=== PATIENT | male | born 1930 | race Caucasian/White ===

== ENCOUNTER 2017-01-01 13:15 | Emergency (ER) | payer MEDICARE, BC ==
--- NOTE | 2017-01-01 15:00 | ER Document Report ---
ED Medical Screen (RME) - General Chief Complaint: Fall Stated Complaint: FALL,HEAD LACERATION Notes: Patient tripped and fell this morning hitting his left forehead over the lateral aspect of the left eyebrow sustaining some small cuts there. His certain that he tripped and did not experience any syncope or loss of consciousness. He has pain in his right shoulder since the fall, but fell on his left side, not his right. Patient is scheduled for surgery to have the right shoulder replaced. Denies other injuries such as neck, lower extremities , etc. Says he did hit his left ribs but doesn't have pain there. TRAVEL OUTSIDE OF THE [place] IN LAST 30 DAYS: No - Related Data Allergies/Adverse Reactions: Penicillins Allergy (Verified 01/01/17 13:54) Past Medical History Renal/ Medical History: Denies: Hx Peritoneal Dialysis Physical Exam - Vital signs Vitals: Temp Pulse Resp BP Pulse Ox 98.3 F 51 L 20 165/65 H 99 01/01/17 13:54 01/01/17 13:54 01/01/17 13:54 01/01/17 13:54 01/01/17 13:54 Course - Vital Signs Vital signs: Temp Pulse Resp BP Pulse Ox 98.3 F 51 L 20 165/65 H 99 01/01/17 13:54 01/01/17 13:54 01/01/17 13:54 01/01/17 13:54 01/01/17 13:54
[2017-01-01] MEDS ORDERED: DIPH/PERTUSS(ACELL)/TETANUS VAC/PF 0.5 ML SYR (>=10YO) IM ONE (15:51)
[2017-01-01] MEDS ORDERED: LIDOCAINE 1%/EPINEPHRINE INJ 20 ML VIAL INJ ONE (15:51)
--- NOTE | 2017-01-01 15:51 | ER Document Report ---
ED Fall - General Chief Complaint: Fall Stated Complaint: FALL,HEAD LACERATION Time seen by provider: 15:51 Mode of Arrival: Ambulatory Information source: Patient TRAVEL OUTSIDE OF THE [place] IN LAST 30 DAYS: No - HPI Patient complains to provider of: trip and fall, head injury, right shoulder pain Occurred: Just prior to arrival Where: Home Context: Tripped Associated symptoms: None Location of injury/pain: Head, Shoulder Quality of pain: Achy Severity: Mild Pain Level: 2 Notes: Patient is an 86 rolled male who presents to the emergency room status post trip and fall at home resulting in an injury to his left forehead and right shoulder, he reports a history of right shoulder pain previously, which seems to be aggravated by his fall, patient denies having any loss of consciousness, states it did take him a few minutes to get up off the ground, denies nausea or vomiting, no vision changes, last tetanus shot is unknown - Related data Allergies/Adverse Reactions: Penicillins Allergy (Verified 01/01/17 13:54) Past Medical History - General Information source: Patient - Social History Smoking Status: Current Every Day Smoker Family History: Reviewed & Not Pertinent Patient has suicidal ideation: No Patient has homicidal ideation: No Renal/ Medical History: Denies: Hx Peritoneal Dialysis Review of Systems - Review of Systems Constitutional: No symptoms reported EENT: No symptoms reported Cardiovascular: No symptoms reported Respiratory: No symptoms reported Gastrointestinal: No symptoms reported Genitourinary: No symptoms reported Male Genitourinary: No symptoms reported Musculoskeletal: See HPI Skin: See HPI Hematologic/Lymphatic: No symptoms reported Neurological/Psychological: No symptoms reported -: Yes All other systems reviewed and negative Physical Exam - Vital signs Vitals: Temp Pulse Resp BP Pulse Ox 98.3 F 51 L 20 165/65 H 99 01/01/17 13:54 01/01/17 13:54 01/01/17 13:54 01/01/17 13:54 01/01/17 13:54 Interpretation: Hypertensive, Bradycardic - General General appearance: Appears well, Alert In distress: None - HEENT Head: Normocephalic, Other - 2.5 cm laceration in the left forehead just above the eyebrow Eyes: Normal Conjunctiva: Normal Extraocular movements intact: Yes Eyelashes: Normal Pupils: PERRL Pharynx: Normal Neck: Normal - Respiratory Respiratory status: No respiratory distress Chest status: Nontender Breath sounds: Normal Chest palpation: Normal - Cardiovascular Rhythm: Regular Heart sounds: Normal auscultation Murmur: No - Abdominal Inspection: Normal Distension: No distension Bowel sounds: Normal Tenderness: Nontender Organomegaly: No organomegaly - Back Back: Normal, Nontender - Extremities General upper extremity: Normal color, Normal ROM, Normal temperature General lower extremity: Normal inspection, Nontender, Normal color, Normal ROM , Normal temperature, Normal weight bearing. No: Edie's sign Shoulder: Tender - Tender to palpate in anterior shoulder region, pain with range of motion testing, distal sensation and motor intact with 2+ radial pulses - Neurological Neuro grossly intact: Yes Cognition: Normal Orientation: AAOx4 Melissa Coma Scale Eye Opening: Spontaneous Melissa Coma Scale Verbal: Oriented Melissa Coma Scale Motor: Obeys Commands [place] Coma Scale Total: 15 Speech: Normal Motor strength normal: LUE, RUE, LLE, RLE Sensory: Normal - Psychological Associated symptoms: Normal affect, Normal mood - Skin Skin Temperature: Warm Skin Moisture: Dry Skin Color: Normal Course - Re-evaluation Re-evalutation: 01/01/17 17:22 Imaging findings were discussed with patient at bedside which are unremarkable, sutures were used to repair patient's forehead wound, he was given wound care instructions and instructions for follow-up, advised to return if symptoms worsen, patient and family members at bedside acknowledge understanding and agreement with this plan - Vital Signs Vital signs: Temp Pulse Resp BP Pulse Ox 97.5 F 51 L 18 119/82 97 01/01/17 17:02 01/01/17 17:02 01/01/17 17:02 01/01/17 17:02 01/01/17 17:02 - Diagnostic Test Radiology reviewed: Image reviewed, Reports reviewed Procedures - Laceration/Wound Repair Left Upper Face Time completed: 16:41 Wound length (cm): 2.5 Wound's Depth, Shape: Irregular Laceration pre-procedure: Sterile PPE donned, Sterile drapes applied, Shur- Clens applied Anesthetic type: 1% Lidocaine Volume Anesthetic (mLs): 5 Wound explored: Clean Irrigated w/ Saline (mLs): 250 Wound Repaired With: Sutures Suture Size/Type: 6:0, Nylon Number of Sutures: 5 Layer Closure?: No Post-procedure wound care: Sterile dressing applied Post-procedure NV exam normal: Yes Complications: No Adult Head Front/Back picture: 1 - 2.5 cm laceration Discharge - Discharge Clinical Impression: Head injury Qualifiers: Encounter type: initial encounter Qualified Code(s): S09.90XA - Unspecified injury of head, initial encounter Forehead laceration Qualifiers: Encounter type: initial encounter Qualified Code(s): S01.81XA - Laceration without foreign body of other part of head, initial encounter Shoulder strain Qualifiers: Encounter type: initial encounter Laterality: right Qualified Code(s): S46.911A - Strain of unspecified muscle, fascia and tendon at shoulder and upper arm level, right arm, initial encounter Condition: Stable Disposition: HOME, SELF-CARE Instructions: Laceration Care ([facility]), Antibiotic Ointment Protection ([facility]), Soap Cleansing ([facility]), Tetanus Immunization Given ([facility]) Additional Instructions: Follow up with your primary care provider in 2-3 days for wound check. Keep wound clean and covered with antibiotic ointment and a clean dressing. Gently rinse with warm water and soap twice daily. Sutures to be removed in 7-10 days. Return to the emergency room immediately if symptoms worsen or any additional concerns. Referrals: OMI ANNE MD [Primary Care Provider] - Follow up as needed
[2017-01-01 17:04] VITALS: BP 119/82
== END 2017-01-01 17:04 | disposition home or self-care (01) ==
LOC: ER 13:15
PROC: 0HQ1XZZ Repair Face Skin, External Approach (ICD-10-PCS; principal; 2017-01-01)
DX: S01.81XA Laceration without foreign body of other part of head, initial encounter (principal); S46.911A Strain of unspecified muscle, fascia and tendon at shoulder and upper arm level, right arm, initial encounter; W01.198A Fall on same level from slipping, tripping and stumbling with subsequent striking against other object, initial encounter; Y92.008 Other place in unspecified non-institutional (private) residence as the place of occurrence of the external cause; F17.200 Nicotine dependence, unspecified, uncomplicated; Z88.0 Allergy status to penicillin
CPT/HCPCS: 12011; 99284; 90471; 73030; 70450; 90715; J3490

== ENCOUNTER 2019-01-31 19:05 | Observation (INO) | payer MEDICARE, BC ==
--- NOTE | 2019-01-31 19:42 | ER Document Report ---
ED Cardiac - General Chief Complaint: Chest Pain > 30 Stated Complaint: CHEST PAIN Time Seen by Provider: 01/31/19 19:29 Primary Care Provider: OMI ANNE MD [ACTIVE STAFF] - Follow up as needed TRAVEL OUTSIDE OF THE [place] IN LAST 30 DAYS: No - HPI Notes: Patient is a 89-year-old male that presents to the emergency department for chief complaint of chest pain. Patient was up ambulating with minimal exertion hands started to have a sudden onset of substernal chest pain at 5:30 PM today. He describes it as a burning sharp sensation. He denies any radiation of his pain. He denied any aggravating factors to his pain. He reports feeling very lightheaded and short of breath during the pain. He states after sitting down he had minimal improvement which is what prompted him to call EMS. After receiving sublingual nitro and aspirin by EMS patient had complete resolution of his pain. He is currently asymptomatic. He does have a history of CAD and his last cardiac catheterization with balloon angioplasty was 2 years ago. Past Medical History: CAD, hypertension, hyperlipidemia Past Surgical History: Coronary balloon angioplasty, appendectomy, cholecystectomy, hernia repair Social History: Denies tobacco and alcohol use Family History: Reviewed and noncontributory for presenting illness Allergies: Reviewed, see documented allergy list. REVIEW OF SYSTEMS: CONSTITUTIONAL : No fever No chills No diaphoresis No recent illness EENT: No vision changes No congestion No sore throat CARDIOVASCULAR: chest pain No palpitations RESPIRATORY: shortness of breath No cough No difficulty breathing GASTROINTESTINAL: No abdominal pain No nausea No vomiting No diarrhea GENITOURINARY: No dysuria No hematuria No difficulty urinating MUSCULOSKELETAL: No back pain No leg pain No arm pain SKIN: No rashes No lesions LYMPHATIC: No swollen, enlarged glands. NEUROLOGICAL: lightheadedness No headache No weakness No paresthesias PSYCHIATRIC: No anxiety No depression PHYSICAL EXAMINATION: Vital signs reviewed, nursing noted reviewed. GENERAL: Well-appearing, well-nourished and in no acute distress. HEAD: Atraumatic, normocephalic. EYES: Eyes appear normal, extraocular movements intact, sclera anicteric, con junctiva are normal. ENT: nares patent, oropharynx clear without exudates. Moist mucous membranes. NECK: Normal range of motion, supple without lymphadenopathy LUNGS: No sternal tenderness, breath sounds clear to auscultation bilaterally and equal. No wheezes rales or rhonchi. HEART: Regular rate and rhythm without murmurs, +2/4 radial pulses bilateral ABDOMEN: Soft, nontender, normoactive bowel sounds. No rebound, guarding, or rigidity. No masses appreciated. EXTREMITIES: Nontender, good range of motion, no pitting or edema. NEUROLOGICAL: No focal neurological deficits. Moves all extremities spontaneously Motor and sensory grossly intact on exam. PSYCH: Normal mood, normal affect. SKIN: Warm, Dry, normal turgor, no rashes or lesions noted on exposed skin - Related Data Allergies/Adverse Reactions: Penicillins Allergy (Verified 01/01/17 13:54) Past Medical History - Social History Smoking Status: Current Every Day Smoker Frequency of alcohol use: None Drug Abuse: None Family History: Reviewed & Not Pertinent Patient has suicidal ideation: No Patient has homicidal ideation: No Renal/ Medical History: Reports: Hx Kidney Stones. Denies: Hx Peritoneal Dialysis Past Surgical History: Reports: Hx Appendectomy - Immunizations Hx Diphtheria, Pertussis, Tetanus Vaccination: Yes - today Physical Exam - Vital signs Vitals: Pulse Ox 96 01/31/19 19:16 Course - Re-evaluation Re-evalutation: 01/31/19 19:41 Vitals reviewed. Nursing notes reviewed. Patient received a full dose aspirin as well as sublingual nitro prior to arrival. He is currently on telemetry monitoring and asymptomatic. EKG shows normal sinus rhythm with PACs and no acute STEMI 01/31/19 21:20 Patient did have an episode of chest pain that recurred but stated it was mild. It was located in the middle of his chest. Repeat EKG was unchanged. Patient's lab work is unremarkable. Chest x-ray shows no acute cardiopulmonary process. He will be admitted to the hospital for further cardiac evaluation. Case discussed with Dr. Alvarez who accepts admission. Patient is currently pain- free. Laboratory 01/31/19 01/31/19 01/31/19 19:21 19:21 19:21 WBC 11.7 H RBC 4.31 L Hgb 13.9 Hct 41.1 MCV 95 MCH 32.3 MCHC 33.9 RDW 13.7 Plt Count 243 Seg Neutrophils % 73.9 Lymphocytes % 14.5 Monocytes % 10.9 Eosinophils % 0.6 Basophils % 0.1 Absolute Neutrophils 8.6 H Absolute Lymphocytes 1.7 Absolute Monocytes 1.3 Absolute Eosinophils 0.1 Absolute Basophils 0.0 Sodium 139.6 Potassium 4.1 Chloride 102 Carbon Dioxide 28 Anion Gap 10 BUN 20 Creatinine 0.91 Est GFR ( Amer) > 60 Est GFR (Non-Af Amer) > 60 Glucose 89 Calcium 9.1 Total Bilirubin 0.5 Direct Bilirubin 0.3 Neonat Total Bilirubin Not Reportable Neonat Direct Bilirubin Not Reportable Neonat Indirect Bili Not Reportable AST 29 ALT 48 Alkaline Phosphatase 84 Troponin I < 0.012 Total Protein 6.3 Albumin 3.6 Chest X-Ray 01/31/19 19:29 IMPRESSION: No acute disease. copyright 2010 [employer]- All Rights Reserved - Vital Signs Vital signs: Temp Pulse Resp BP Pulse Ox 17 158/62 H 96 01/31/19 19:19 01/31/19 19:19 01/31/19 19:29 - Laboratory Result Diagrams: 01/31/19 19:21 01/31/19 19:21 Laboratory results interpreted by me: 01/31/19 19:21 WBC 11.7 H RBC 4.31 L Absolute Neutrophils 8.6 H - EKG Interpretation by Me Additional EKG results interpreted by me: 01/31/19 19:42 Interpreted by myself 1912: Normal sinus rhythm, rate 57, PVCs, normal axis, LVH, no STEMI 01/31/19 21:20 Repeat EKG at 2013: Normal sinus rhythm, rate 56, normal axis, no ectopy, no significant change from initial Discharge - Discharge Clinical Impression: Chest pain Qualifiers: Chest pain type: unspecified Qualified Code(s): R07.9 - Chest pain, unspecified Condition: Stable Disposition: ADMITTED OBSERVATION Admitting Provider: Antonio (Hospitalist) Unit Admitted: Telemetry Referrals: OMI ANNE MD [ACTIVE STAFF] - Follow up as needed
[2019-01-31 19:47] LABS: ABSOLUTE EOSINOPHILS # (AUTO) 0.1 10^3/uL (0.0-0.6); ABSOLUTE LYMPHOCYTES (AUTO) 1.7 10^3/uL (0.5-4.7); ABSOLUTE MONOCYTES (AUTO) 1.3 10^3/uL (0.1-1.4); ABSOLUTE NEUT (AUTO) 8.6 10^3/uL (1.7-8.2); BASOPHILS % (AUTO) 0.1 % (0-2); EOSINOPHILS % (AUTO) 0.6 % (0-6); HEMATOCRIT 41.1 % (37.9-51.0); HEMOGLOBIN 13.9 g/dL (13.5-17.0); LYMPHOCYTES % (AUTO) 14.5 % (13-45); MEAN CORPUSCULAR HEMOGLOBIN 32.3 pg (27.0-33.4); MEAN CORPUSCULAR HGB CONC 33.9 g/dL (32.0-36.0); MEAN CORPUSCULAR VOLUME 95 fl (80-97); MONOCYTES % (AUTO) 10.9 % (3-13); PLATELET COUNT 243 10^3/uL (150-450); RED BLOOD COUNT 4.31 10^6/uL (4.35-5.55); RED CELL DISTRIBUTION WIDTH 13.7 % (11.5-14.0); SEGMENTED NEUTROPHILS % (AUTO) 73.9 % (42-78); TOTAL CELLS COUNTED % (AUTO) 100 %; WHITE BLOOD COUNT 11.7 10^3/uL (4.0-10.5)
[2019-01-31 20:08] LABS: ALANINE AMINOTRANSFERASE 48 U/L (21-72); ALBUMIN 3.6 g/dL (3.5-5.0); ALKALINE PHOSPHATASE 84 U/L (38-126); ANION GAP 10 (5-19); ASPARTATE AMINO TRANSFERASE 29 U/L (17-59); BILIRUBIN,DIRECT 0.3 mg/dL (0.0-0.4); BILIRUBIN,TOTAL 0.5 mg/dL (0.2-1.3); BLOOD UREA NITROGEN 20 mg/dL (7-20); CALCIUM 9.1 mg/dL (8.4-10.2); CARBON DIOXIDE 28 mmol/L (22-30); CHLORIDE 102 mmol/L (98-107); GLUCOSE 89 mg/dL (75-110); POTASSIUM 4.1 mmol/L (3.6-5.0); SODIUM 139.6 mmol/L (137-145); TOTAL PROTEIN 6.3 g/dL (6.3-8.2)
--- NOTE | 2019-01-31 20:13 | RADIOLOGY REPORT (SQ) ---
EXAM DESCRIPTION: XR CHEST 1 VIEW COMPLETED DATE/TME: 01/31/2019 19:29 CLINICAL HISTORY: 89 years, Male, chest pain COMPARISON: None. NUMBER OF VIEWS: One TECHNIQUE: Single frontal view of the chest was obtained portably. LIMITATIONS: None. FINDINGS: Cardiac and mediastinal contours are normal. Lungs are clear. No pleural effusion or pneumothorax. IMPRESSION: No acute disease. copyright 2010 [employer]- All Rights Reserved
--- NOTE | 2019-01-31 20:46 | EKG REPORT ---
SEVERITY:- ABNORMAL ECG - ATRIAL FIBRILLATION, V-RATE 53-64 PROBABLE LVH WITH SECONDARY REPOL ABNRM : Confirmed by: Lupe Zaragoza MD 31-Jan-2019 20:44:48
[2019-01-31] MEDS ORDERED: BENZONATATE 100 MG CAPSULE PO PRN (22:43)
[2019-01-31] MEDS ORDERED: MAGNESIUM HYDROXIDE SUSP 30 ML UDCUP PO PRN (22:50)
[2019-01-31] MEDS ORDERED: MAG HYDROX/AL HYDROX/SIMETH SUSP 30 ML UDCUP PO PRN (22:50)
[2019-01-31] MEDS ORDERED: TEMAZEPAM 15 MG CAPSULE PO PRN (22:50)
[2019-01-31] MEDS ORDERED: ONDANSETRON HCL INJ/PF 4 MG/2 ML SDV IV PRN (22:50)
[2019-01-31] MEDS ORDERED: HYDRALAZINE HCL INJ/PF 20 MG/1 ML SDV IV PRN (22:55)
[2019-01-31] MEDS ORDERED: MORPHINE SULFATE 10 MG/ML INJ IV PRN (22:55)
[2019-01-31] MEDS ORDERED: ACETAMINOPHEN 325 MG TABLET PO PRN (22:55)
[2019-01-31] MEDS ORDERED: NITROGLYCERIN 0.4 MG/TAB 25 TAB/BOTTLE SL PRN (22:55)
[2019-02-01] MEDS ORDERED: MORPHINE SULFATE 10 MG/ML INJ IV PRN ×3 (00:04→00:05)
[2019-02-01 01:14] LABS: CREATINE KINASE MB 1.46 ng/mL (<4.55)
[2019-02-01 01:20] LABS: TROPONIN I < 0.012 ng/mL
--- NOTE | 2019-02-01 03:54 | PDOC H&P ---
History of Present Illness Admission Date/PCP: 01/31/19 21:32 NO LOCAL MD Patient complains of: Chest pain History of Present Illness: CHOCO WHITTEN is a 89 year old male who presents the emergency room with an acute history of chest pain. He admits that it 5:30 PM today while walking at a casual pace, he suddenly developed a severe burning sharp pain in his substernal region without radiation. The pain was accompanied by a lightheaded sensation and moderate dyspnea. He immediately sat down but received no relief from resting so he called EMS. After EMS arrived he was given aspirin and nitroglycerin with complete and immediate resolution of his pain which has not recurred. He admits prior similar episodes related to his coronary artery disease but he has not identified any other aggravating or ameliorating factors for his episode of chest pain today. In the emergency room he was found to have a negative EKG and cardiac enzyme evaluation for acute myocardial ischemia or i njury. He was subsequently admitted to observation status for further evaluation. Past Medical History Cardiac Medical History: Reports: Coronary Artery Disease, Hyperlipidema, Hypertension Denies: Atrial Fibrillation, Congestive Heart Failure, DVT, Myocardial Infarction, Pulmonary Embolism Pulmonary Medical History: Denies: Asthma, Chronic Obstructive Pulmonary Disease (COPD) EENT Medical History: Denies: Cataracts, Ears - Irrigated Neurological Medical History: Denies: Hemorrhagic CVA, Ischemic CVA, Seizures Endocrine Medical History: Denies: Diabetes Mellitus Type 1, Diabetes Mellitus Type 2, Hyperthyroidism, Hypothyroidism Renal/ Medical History: Denies: Chronic Kidney Disease, Nephrolithiasis Malignancy Medical History: Reports: None GI Medical History: Denies: Cirrhosis, Hepatitis Musculoskeltal Medical History: Denies: Arthritis, Gout Skin Medical History: Denies: Eczema, Psoriasis Psychiatric Medical History: Reports: Tobacco Dependency Denies: Alcohol Dependency, Substance Abuse Traumatic Medical History: Reports: None Hematology: Denies: Anemia, Bleeding Tendencies Infectious Medical History: Reports: None Past Surgical History Past Surgical History: Reports: Appendectomy, Cardiac Catheterization - With balloon angioplasty, Cholecystectomy, Herniorrhaphy Social History Information Source: Patient Lives with: Spouse/Significant other Smoking Status: Former Smoker Frequency of Alcohol Use: None Hx Recreational Drug Use: No Drugs: None Hx Prescription Drug Abuse: No Past Social History Note: Spouse Family History Family History: CAD, Hypertension. denies: DM, Malignancy Parental Family History Reviewed: Yes Children Family History Reviewed: No Sibling(s) Family History Reviewed.: Yes Medication/Allergy Home Medications: Benzonatate [Tessalon Perles 100 mg Capsule] 100 mg PO Q8HP PRN 01/31/19 Fluoxetine HCl [Prozac 20 mg Capsule] 20 mg PO DAILY 01/31/19 Simvastatin [Zocor 40 mg Tablet] 40 mg PO QHS 01/31/19 Allergies/Adverse Reactions: Penicillins Allergy (Verified 01/01/17 13:54) Review of Systems Constitutional: ABSENT: anorexia, fever(s) Eyes: ABSENT: visual disturbances, other - Eye pain Ears: ABSENT: hearing changes, other - Ear pain Nose, Mouth, and Throat: ABSENT: mouth pain, sore throat Cardiovascular: PRESENT: as per HPI, chest pain, dyspnea on exertion. ABSENT: edema, orthropnea, palpitations Respiratory: PRESENT: as per HPI, dyspnea. ABSENT: cough Gastrointestinal: ABSENT: abdominal pain, constipation, diarrhea, nausea, vomiting Musculoskeletal: ABSENT: back pain, joint swelling, muscle weakness Integumentary: ABSENT: pruritus, rash Neurological: ABSENT: confusion, convulsions, focal weakness, memory loss, syncope Psychiatric: ABSENT: anxiety, depression Endocrine: ABSENT: cold intolerance, heat intolerance Hematologic/Lymphatic: ABSENT: easy bleeding, easy bruising Physical Exam Vital Signs: Temp Pulse Resp BP Pulse Ox 17 158/62 H 96 01/31/19 19:19 01/31/19 19:19 01/31/19 19:29 Intake & Output 01/29/19 01/30/19 01/31/19 23:59 23:59 23:59 Weight 60.6 kg General appearance: PRESENT: no acute distress, cooperative Head exam: PRESENT: atraumatic, normocephalic Eye exam: ABSENT: conjunctival injection, nystagmus, scleral icterus Ear exam: PRESENT: normal external ear exam. ABSENT: bleeding, drainage Mouth exam: PRESENT: dry mucosa, neck supple Neck exam: ABSENT: JVD, thyromegaly, tracheal deviation Respiratory exam: PRESENT: clear to auscultation christ, symmetrical, unlabored Cardiovascular exam: PRESENT: RRR - With frequent irregular beats. ABSENT: clicks, gallop, rubs Pulses: PRESENT: normal radial pulses, normal dorsalis pedis pul Vascular exam: PRESENT: normal capillary refill. ABSENT: pallor GI/Abdominal exam: PRESENT: normal bowel sounds, soft Rectal exam: PRESENT: deferred Extremities exam: ABSENT: joint swelling, pedal edema Musculoskeletal exam: PRESENT: full ROM, normal inspection Neurological exam: PRESENT: alert, oriented to person, oriented to place, oriented to time, oriented to situation, CN II-XII grossly intact. ABSENT: motor sensory deficit Psychiatric exam: PRESENT: appropriate affect, normal mood Skin exam: PRESENT: dry, intact, warm. ABSENT: jaundice, rash, urticaria Results Laboratory Results: 01/31/19 19:21 01/31/19 19:21 01/31/19 01/31/19 19:21 19:21 WBC 11.7 H RBC 4.31 L Hgb 13.9 Hct 41.1 MCV 95 MCH 32.3 MCHC 33.9 RDW 13.7 Plt Count 243 Seg Neutrophils % 73.9 Lymphocytes % 14.5 Monocytes % 10.9 Eosinophils % 0.6 Basophils % 0.1 Absolute Neutrophils 8.6 H Absolute Lymphocytes 1.7 Absolute Monocytes 1.3 Absolute Eosinophils 0.1 Absolute Basophils 0.0 Sodium 139.6 Potassium 4.1 Chloride 102 Carbon Dioxide 28 Anion Gap 10 BUN 20 Creatinine 0.91 Est GFR ( Amer) > 60 Est GFR (Non-Af Amer) > 60 Glucose 89 Calcium 9.1 Total Bilirubin 0.5 AST 29 ALT 48 Alkaline Phosphatase 84 Total Protein 6.3 Albumin 3.6 01/31/19 19:21 Troponin I < 0.012 Impressions: Chest X-Ray 01/31/19 19:29 IMPRESSION: No acute disease. copyright 2010 [employer]- All Rights Reserved Assessment and Plan - Diagnosis (1) Chest pain Qualifiers: Chest pain type: unspecified Qualified Code(s): R07.9 - Chest pain, unspecified Is this a current diagnosis for this admission?: Yes Plan: Serial cardiac enzymes will be obtained to evaluate for possible myocardial ischemia or injury. If cardiac enzymes are negative patient will be discharged for follow-up with his primary care provider and budget clerk per his preference. Additionally he will be given morphine sulfate 2 to 4 mg IV every 2 hours as needed for chest pain on a sliding scale basis. He will also nitroglycerin 0.4 mg sublingual every 5 minutes as needed for chest pain. Morning laboratory of his CBC, metabolic profile and magnesium level will be performed. Additionally patient will have a lipid profile and thyroid profile obtained as part of his chest pain/coronary artery disease assessment. (2) CAD (coronary artery disease) Qualifiers: Coronary Disease-Associated Artery/Lesion type: [place] artery [place] vs. transplanted heart: [place] heart Associated angina: angina presence unspecified Qualified Code(s): I25.10 - Atherosclerotic heart disease of [place] coronary artery without angina pectoris Is this a current diagnosis for this admission?: Yes Plan: Patient will be continued on his current coronary artery disease medications as soon as they can be verified by pharmacy. Additionally he will be given morphine sulfate 2 to 4 mg IV every 2 hours as needed for chest pain on a sliding scale basis. He will also nitroglycerin 0.4 mg sublingual every 5 minutes as needed for chest pain. (3) HTN (hypertension) Qualifiers: Hypertension type: essential hypertension Qualified Code(s): I10 - Essen tial (primary) hypertension Is this a current diagnosis for this admission?: Yes Plan: Patient be continued on his usual antihypertensive regiment once his medical reconciliation has been confirmed by pharmacy. He will be monitored on telemet ry and will have frequent vital sign checks. (4) HLD (hyperlipidemia) Qualifiers: Hyperlipidemia type: unspecified Qualified Code(s): E78.5 - Hyperlipidemia, unspecified Is this a current diagnosis for this admission?: Yes Plan: Patient be continued on his current lipid control regiment when pharmacy has verified his medical reconciliation. He will have a lipid profile performed and a thyroid profile performed for evaluation. - Time Time Spent with patient: 25-34 minutes Medications reviewed and adjusted accordingly: Yes Anticipated discharge: Home Within: within 24 hours - Inpatient Certification Based on my medical assessment, after consideration of the patient's comorbidities, presenting symptoms, or acuity I expect that the services needed warrant INPATIENT care.: No I certify that my determination is in accordance with my understanding of Medicare's requirements for reasonable and necessary INPATIENT services [42 CFR 412.3e].: No Medical Necessity: Need Close Monitoring Due to Risk of Patient Decompensation, Need For Continuous Telemetry Monitoring, Risk of Complication if Not Cared For in Hospital
[2019-02-01] MEDS ORDERED: HEPARIN SOD (PORCINE) 5,000 UNIT/ML 1 ML SYRINGE SUBCUT SCH (06:00)
[2019-02-01 06:51] LABS: HEMATOCRIT 43.7 % (37.9-51.0); HEMOGLOBIN 15.1 g/dL (13.5-17.0); MEAN CORPUSCULAR HEMOGLOBIN 33.2 pg (27.0-33.4); MEAN CORPUSCULAR HGB CONC 34.6 g/dL (32.0-36.0); MEAN CORPUSCULAR VOLUME 96 fl (80-97); PLATELET COUNT 215 10^3/uL (150-450); RED BLOOD COUNT 4.56 10^6/uL (4.35-5.55); RED CELL DISTRIBUTION WIDTH 14.2 % (11.5-14.0); WHITE BLOOD COUNT 9.6 10^3/uL (4.0-10.5)
[2019-02-01 07:16] LABS: ANION GAP 10 (5-19); BLOOD UREA NITROGEN 20 mg/dL (7-20); CALCIUM 9.2 mg/dL (8.4-10.2); CARBON DIOXIDE 27 mmol/L (22-30); CHLORIDE 104 mmol/L (98-107); CHOLESTEROL 168.33 mg/dL (0-200); CREATINE KINASE 33 U/L (55-170); GLUCOSE 90 mg/dL (75-110); POTASSIUM 4.3 mmol/L (3.6-5.0); SODIUM 140.7 mmol/L (137-145); TRIGLYCERIDES 180 mg/dL (<150)
[2019-02-01 07:26] LABS: DIRECT LDL 93 mg/dL (<100)
[2019-02-01 07:31] LABS: FREE T3 3.79 pg/mL (2.77-5.27); FREE T4 (FREE THYROXINE) 0.93 ng/dL (0.78-2.19)
[2019-02-01 07:34] LABS: CREATINE KINASE MB 1.47 ng/mL (<4.55)
[2019-02-01 07:44] LABS: THYROID STIMULATING HORMONE 4.79 uIU/mL (0.47-4.68)
[2019-02-01 07:58] LABS: TROPONIN I < 0.012 ng/mL
[2019-02-01] MEDS ORDERED: DOCUSATE SODIUM 100 MG CAPSULE PO SCH (10:00)
[2019-02-01] MEDS ORDERED: FLUOXETINE HCL 20 MG CAPSULE PO SCH (10:00)
[2019-02-01] MEDS ORDERED: FAMOTIDINE 20 MG TABLET PO SCH (10:00)
--- NOTE | 2019-02-01 10:29 | PDOC DISCHARGE SUMMARY ---
General - Admit/Disc Date/PCP Admission Date/Primary Care Provider: 01/31/19 21:32 NO LOCALMD Discharge Date: 02/01/19 - Additional Information Home Medications: Benzonatate [Tessalon Perles 100 mg Capsule] 100 mg PO Q8HP PRN 01/31/19 Fluoxetine HCl [Prozac 20 mg Capsule] 20 mg PO DAILY 01/31/19 Simvastatin [Zocor 40 mg Tablet] 40 mg PO QHS 01/31/19 Albuterol Sulfate [Proair HFA Inhalation Aerosol 8.5 gm MDI] 2 puff IH Q4HP PRN 02/01/19 History of Present Illness History of Present Illness: CHOCO WHITTEN is a 89 year old male who presents the emergency room with an acute history of chest pain. He admits that it 5:30 PM today while walking at a casual pace, he suddenly developed a severe burning sharp pain in his substernal region without radiation. The pain was accompanied by a lightheaded sensation and moderate dyspnea. He immediately sat down but received no relief from resting so he called EMS. After EMS arrived he was given aspirin and nitroglycerin with complete and immediate resolution of his pain which has not recurred. He admits prior similar episodes related to his coronary artery disease but he has not identified any other aggravating or ameliorating factors for his episode of chest pain today. In the emergency room he was found to have a negative EKG and cardiac enzyme evaluation for acute myocardial ischemia or injury. He was subsequently admitted to observation status for further evaluation. Hospital Course Hospital Course: Mr. Whitten is a very pleasant 89 years old male patient was past medical history of coronary disease, hyperlipidemia, hypertension presented with chief complaint of chest pain. Patient reports this has been in his usual baseline state of health up until yesterday when he started to have sudden sharp nonradiating chest pain localized to the substernal area. Patient reported that his chest pain subsided after he was given sublingual nitroglycerin. He still states of cardiac enzymes are negative and EKG is nonrevealing. Patient remained chest pain-free. I offered him nuclear cardiac stress test but he he stated that he did not have the stress test with his primary yard associate Dr. Allen. His vital signs are within normal limits. I will continue same medications. Patient advised to keep up his upcoming appointment with his yard associate. Physical Exam Vital Signs: Temp Pulse Resp BP Pulse Ox 98.1 F 55 L 19 180/74 H 99 02/01/19 03:33 02/01/19 09:02 02/01/19 03:33 02/01/19 03:33 02/01/19 03:33 Intake & Output 01/31/19 02/01/19 02/02/19 06:59 06:59 06:59 Intake Total 390 300 Output Total 250 Balance 390 50 Weight 41.4 kg General appearance: PRESENT: no acute distress, well-developed Head exam: PRESENT: atraumatic, normocephalic Neck exam: ABSENT: carotid bruit, JVD, lymphadenopathy, thyromegaly Respiratory exam: PRESENT: clear to auscultation christ. ABSENT: rales, rhonchi, wheezes Cardiovascular exam: PRESENT: RRR. ABSENT: diastolic murmur, rubs, systolic murmur GI/Abdominal exam: PRESENT: normal bowel sounds, soft. ABSENT: distended, guarding, mass, organolmegaly, rebound, tenderness Extremities exam: PRESENT: full ROM. ABSENT: calf tenderness, clubbing, pedal edema Neurological exam: PRESENT: alert, awake, oriented to time, oriented to situation Results Laboratory Results: 02/01/19 06:10 02/01/19 06:10 01/31/19 01/31/19 02/01/19 19:21 19:21 00:01 WBC 11.7 H RBC 4.31 L Hgb 13.9 Hct 41.1 MCV 95 MCH 32.3 MCHC 33.9 RDW 13.7 Plt Count 243 Seg Neutrophils % 73.9 Lymphocytes % 14.5 Monocytes % 10.9 Eosinophils % 0.6 Basophils % 0.1 Absolute Neutrophils 8.6 H Absolute Lymphocytes 1.7 Absolute Monocytes 1.3 Absolute Eosinophils 0.1 Absolute Basophils 0.0 Sodium 139.6 Potassium 4.1 Chloride 102 Carbon Dioxide 28 Anion Gap 10 BUN 20 Creatinine 0.91 Est GFR ( Amer) > 60 Est GFR (Non-Af Amer) > 60 Glucose 89 Calcium 9.1 Magnesium Total Bilirubin 0.5 AST 29 ALT 48 Alkaline Phosphatase 84 Total Protein 6.3 Albumin 3.6 Triglycerides Cholesterol LDL Cholesterol Direct VLDL Cholesterol HDL Cholesterol TSH Free T4 Cancelled Free T3 pg/mL Cancelled 02/01/19 02/01/19 02/01/19 06:10 06:10 06:10 WBC 9.6 RBC 4.56 Hgb 15.1 Hct 43.7 MCV 96 MCH 33.2 MCHC 34.6 RDW 14.2 H Plt Count 215 Seg Neutrophils % Lymphocytes % Monocytes % Eosinophils % Basophils % Absolute Neutrophils Absolute Lymphocytes Absolute Monocytes Absolute Eosinophils Absolute Basophils Sodium 140.7 Potassium 4.3 Chloride 104 Carbon Dioxide 27 Anion Gap 10 BUN 20 Creatinine 0.79 Est GFR ( Amer) > 60 Est GFR (Non-Af Amer) > 60 Glucose 90 Calcium 9.2 Magnesium 2.4 H Total Bilirubin AST ALT Alkaline Phosphatase Total Protein Albumin Triglycerides 180 H Cholesterol 168.33 LDL Cholesterol Direct 93 VLDL Cholesterol 36.0 H HDL Cholesterol 49 TSH 4.79 H Free T4 0.93 Free T3 pg/mL 3.79 01/31/19 02/01/19 02/01/19 19:21 00:01 00:01 Creatine Kinase 32 L CK-MB (CK-2) 1.46 Troponin I < 0.012 < 0.012 02/01/19 02/01/19 06:10 06:10 Creatine Kinase 33 L CK-MB (CK-2) 1.47 Troponin I < 0.012 Impressions: Chest X-Ray 01/31/19 19:29 IMPRESSION: No acute disease. copyright 2010 [employer]- All Rights Reserved Qualifiers - * PATIENT BEING DISCHARGED WITH ANY OF THE FOLLOWING DIAGNOSIS: No Acute Heart Failure Is this a Heart Failure Patient?: No
[2019-02-01 10:47] VITALS: BP 152/80
[2019-02-01] MEDS ORDERED: SIMVASTATIN 40 MG TABLET PO SCH (22:00)
--- NOTE | 2019-02-01 22:31 | EKG REPORT ---
SEVERITY:- ABNORMAL ECG - SINUS RHYTHM PROBABLE LVH WITH SECONDARY REPOL ABNRM : Confirmed by: Lupe Zaragoza MD 01-Feb-2019 22:31:12
--- NOTE | 2019-02-01 22:32 | EKG REPORT ---
SEVERITY:- ABNORMAL ECG - SINUS BRADYCARDIA PROBABLE LVH WITH SECONDARY REPOL ABNRM : Confirmed by: Lupe Zaragoza MD 01-Feb-2019 22:31:36
== END 2019-02-01 11:15 | disposition home or self-care (01) ==
LOC: ER 19:05 → EH 21:32 → 4N 23:16
PROVIDERS: ADMIT Emergency Medicine; ATTEND Emergency Medicine
DX: R07.9 Chest pain, unspecified (principal); E78.5 Hyperlipidemia, unspecified; I25.10 Atherosclerotic heart disease of native coronary artery without angina pectoris; I10 Essential (primary) hypertension; Z87.891 Personal history of nicotine dependence; Z79.899 Other long term (current) drug therapy
CPT/HCPCS: 93005 ×2; 99285; 36415 ×2; 84439; 82553; 82550; 83735; 84443; 85025; 85027; 80048; 80053; 84484 ×2; 84481; 80061; 71045; 93010 ×2; G0378 ×2; A9270 ×3